=== PATIENT | female | born 1930 | race Caucasian/White ===

== ENCOUNTER → 2017-06-21 | Emergency (ER) | payer OTHER ==
[~2017-06-21] VITALS: Ht 160 cm; Wt 78.9 kg
[~2017-06-21] MED LIST: CELEBREX200 MG PO; COUMADIN6 MG PO; DIOVAN HCT 31 TABLET PO; DIOVAN160 MG PO; DOCUSATE SODIU100 MG PO; HYDROCODON-ACE1 EAC7 PO; LO-DOSE ASPIRIN81 M1 PO; METOPROLOL TART50 MG PO; NORCO 5/3251 TABLET PO; ZETIA10 MG PO
[2017-06-21 09:50] LABS: HEMOGLOBIN 12.5 G/DL (11.9-15.5); MCH 28.5 PG (29.0-34.0); MCHC 32.9 G/DL (30.0-36.0); MCV 86.6 FL (83-99); RBC DIS.WIDTH-CV 13.3 % (11.8-14.6); RBC DIS.WIDTH-SD 41.7 % (39-53); RED BLOOD COUNT 4.39 M/uL (3.80-5.20); WHITE BLOOD COUNT 9.9 K/uL (4.1-10.2)
[2017-06-21 10:02] LABS: CHLORIDE 110 mEq/L (99-109); POTASSIUM 4.9 mEq/L (3.7-5.4); SODIUM 140 mEq/L (136-147)
[2017-06-21 10:03] LABS: GLUCOSE 125 mg/dL (70-99)
[2017-06-21 10:07] LABS: CREATININE 1.3 mg/dL (0.6-1.3); GFR ESTIMATE (CALCULATED) 41 mL/min/
[2017-06-21 10:08] LABS: UREA NITROGEN (BUN) 35 mg/dL (9-23)
[2017-06-21 10:26] LABS: PLATELET COUNT 264 K/uL (156-360)
[2017-06-21 11:47] LABS: APPEARANCE CLEAR ((CLEAR)); BILIRUBIN NEGATIVE; BLOOD NEGATIVE; COLOR YELLOW ((YELLOW)); GLUCOSE (STRIP) NEGATIVE; KETONES NEGATIVE; LEUKOCYTES SMALL; NITRITE NEGATIVE; PROTEIN (STRIP) 30; SPECIFIC GRAVITY 1.013 (1.000-1.030); UROBILINOGEN 0.2 MG/DL (0.2-1.0)
[2017-06-21 11:49] LABS: BACTERIA NONE SEEN /HPF; EPITHELIAL CELLS RARE /HPF; MUCUS NONE SEEN /LPF; RED BLOOD CELLS 0-5 /HPF (0-5); UCUL ADDED? YES; WHITE BLOOD CELLS 20-30 /HPF (0-5)
[2017-06-21 12:03] LABS: TROP-I INTERPRETATION NEGATIVE; TROPONIN-I 0.02 ng/mL (0.0-0.30)
[2017-06-21 14:31] VITALS: BP 186/74
== END | disposition home or self-care (01) ==
LOC: EME 09:24
PROVIDERS: Nurse Practitioner Family
PROC: 0SSBXZZ Reposition Left Hip Joint, External Approach (ICD-10-PCS; principal; 2017-06-21)
DX: T84.021A Dislocation of internal left hip prosthesis, initial encounter (principal); M25.551 Pain in right hip; N39.0 Urinary tract infection, site not specified; N18.9 Chronic kidney disease, unspecified; I12.9 Hypertensive chronic kidney disease with stage 1 through stage 4 chronic kidney disease, or unspecified chronic kidney disease; E11.22 Type 2 diabetes mellitus with diabetic chronic kidney disease; I44.7 Left bundle-branch block, unspecified; Z96.643 Presence of artificial hip joint, bilateral; W19.XXXA Unspecified fall, initial encounter
CPT/HCPCS: 73501; 73522; 80048; 81003; 84484; 85027; 87086; 93005; 99281; 99285; J7030

== ENCOUNTER 2017-09-20 10:50 | Day surgery (SDC) | payer OTHER ==
[~2017-09-20] VITALS: Ht 160 cm; Wt 74.9 kg
[~2017-09-20 10:50] MED LIST changes: +ADULT ASPIRIN81 MG PO; +COLACE100 MG PO; +NORVASC10 MG PO; +PROCARDIA XL60 MG PO
[2017-09-20 11:22] VITALS: BP 187/80
[2017-09-20 16:30] VITALS: BP 160/67
== END 2017-09-20 17:20 | disposition home or self-care (01) ==
LOC: SDC 10:50
PROC: 0HXHXZZ Transfer Right Upper Leg Skin, External Approach (ICD-10-PCS; principal; 2017-09-20)
PROC: 0HBHXZZ Excision of Right Upper Leg Skin, External Approach (ICD-10-PCS; principal; 2017-09-20)
PROC: 0HBLXZZ Excision of Left Lower Leg Skin, External Approach (ICD-10-PCS; principal; 2017-09-20)
DX: C44.719 Basal cell carcinoma of skin of left lower limb, including hip (principal); C44.712 Basal cell carcinoma of skin of right lower limb, including hip
CPT/HCPCS: 88305; 88331; 88332; J3010; S0020

== ENCOUNTER → 2017-10-01 | Outpatient (CLI) | payer OTHER | END | disposition home or self-care (01) | LOC: AMB 12:30 | DX: T81.30XA Disruption of wound, unspecified, initial encounter (principal); Z85.828 Personal history of other malignant neoplasm of skin | CPT/HCPCS: 99212 ==

== ENCOUNTER → 2017-10-09 | Outpatient (CLI) | payer OTHER ==
[~2017-10-09] MED LIST changes: +METOPROLOL SUCC25 MG PO
== END | disposition home or self-care (01) ==
LOC: AMB 08:57
PROC: 8E0YXY8 Suture Removal from Lower Extremity (ICD-10-PCS; principal; 2017-10-09)
DX: Z48.02 Encounter for removal of sutures (principal)
CPT/HCPCS: 99213

== ENCOUNTER 2017-10-17 12:38 | Day surgery (SDC) | payer OTHER ==
[~2017-10-17] VITALS: Ht 160 cm; Wt 72.6 kg
[2017-10-17 13:48] VITALS: BP 176/75
[2017-10-17 17:20] VITALS: BP 179/99
[2017-10-17 18:01] VITALS: BP 165/75
== END 2017-10-17 18:10 | disposition home or self-care (01) ==
LOC: SDC 12:38
DX: C44.712 Basal cell carcinoma of skin of right lower limb, including hip (principal); I10 Essential (primary) hypertension; I44.7 Left bundle-branch block, unspecified; I44.0 Atrioventricular block, first degree; Z79.82 Long term (current) use of aspirin
CPT/HCPCS: 88305; 88331; 88332; J0690; J3010

== ENCOUNTER → 2017-10-30 | Outpatient (CLI) | payer OTHER | END | disposition home or self-care (01) | LOC: AMB 12:45 | DX: Z09 Encounter for follow-up examination after completed treatment for conditions other than malignant neoplasm (principal) | CPT/HCPCS: 99213; A6242 ==